=== PATIENT | male | born 1970 | race Caucasian/White ===

== ENCOUNTER 2018-11-25 11:59 | Inpatient (IN) | payer MEDICAID ==
[~2018-11-25] VITALS: Ht 182.9 cm; Wt 95.2 kg
[2018-11-25] MEDS ORDERED: hydrOXYzine 25 MG tablet PO PRN (15:05)
[2018-11-25] MEDS ORDERED: acetaminophen 325mg tablet PO PRN (15:05)
[2018-11-25] MEDS ORDERED: magnesium hydroxide 30ml (MOM) UD suspension PO PRN (15:05)
[2018-11-25] MEDS ORDERED: mag hydrox/Alum hydrox/simeth 30ml oral suspension PO PRN (15:05)
[2018-11-25] MEDS ORDERED: loperamide 2mg capsule PO PRN (15:05)
[2018-11-25] MEDS ORDERED: LORazepam 1 MG tablet PO PRN (15:05)
[2018-11-25] MEDS ORDERED: OLAN5TAB26 PO (15:50)
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
[2018-11-25 16:50] VITALS: BP 136/74
[2018-11-25] MEDS: acetaminophen 325mg tablet PO PRN (17:11)
[2018-11-25] MEDS: OLANZAPINE 5 MG TABLET PO SCH (19:56)
[2018-11-25 20:00] VITALS: BP 105/67
--- NOTE | 2018-11-26 01:06 | NUR ---
Nursing Progress Note: Legal hold:5150 Client on voluntary/involuntary status for GD/DTS/DTO for being a danger to self and GD Report received from nurse, Kel Jennings RN with use of SBAR Why are they here: The patient was admitted to [facility] from [facility] ER on a 5150 for being a danger to himself and gravely disabled. He presented with paranoid delusions that he is being monitored by the FBI and was under surveillance. He believes that he has an infestation of parasites and he was taking large doses of veterinary medications. Per the [facility] assessment his girlfriend reported that his parents approximately 3 years ago and he had not been himself after that. He has been traveling from [facility] to [place] seeking medical help for his delusional beliefs. Assessment What has happened this shift: The patient was observed in bed and snoring loudly and he presented as very drowsy but able to wake up for a brief period for the evening assessment. The patient was guarded in the information he shared. He was very vague and stated repeatedly that he was too tired to talk tonight. He did state that he was not hearing voices or seeing anything that was not there. He was asked if he was being followed by the FBI and he just avoided the question. He stated "I'm riddled with cysts" "I'm malnourished" "I have hydatid. Look it up and that will explain everything" When asked if he thought he might have a mental illness he stated that he had no idea. S/I, H/I: Denies A/VH: Denies but is guarded Sleep: the patient has been sleeping this entire shift ADL's: The patient stated he has not showered in several days at least Group attendance: NA Were meds taken: Took HS Zyprexa Any med S/E none apparent Mental Status Exam Appearance: disheveled Eye contact kept his eyes closed Behavior: resistive to the assessment at this time 2nd to fatigue Speech: spontaneous Mood: difficult to assess 2nd to drowsiness Affect: blunted Thought process: poor focus Thought Content: Delusional beliefs that he is physically unwell Cognition: unable to fully assess Insight: Poor Judgment: Poor Interventions PRN's used: none Therapeutic interventions: One to one with the patient to assess severity of disordered thoughts and self harm risk. Educated to medications. Restraints/seclusion/emergency medication: None Justification of Continued Inpatient Treatment: The patient has been taking medicines intended for animals 2nd to his delusional beliefs that he is ill.
[2018-11-26 07:03] LABS: CHOL/HDL RATIO 5.9 (0.00-4.99); CHOLESTEROL 184 MG/DL (0-200); HDL CHOLESTEROL 31 MG/DL (35-60); LDL CHOLESTEROL 138 MG/DL (50-100); TRIGLYCERIDES 125 MG/DL (20-135)
[2018-11-26 07:07] LABS: HEMOGLOBIN A1C 5.8 % (4.5-6.2)
[2018-11-26 08:00] VITALS: BP 117/75
[2018-11-26] MEDS: OLANZAPINE 5 MG TABLET PO SCH ×2 (08:25→20:22)
[2018-11-26] MEDS: acetaminophen 325mg tablet PO PRN (08:30)
--- NOTE | 2018-11-26 09:21 | NUR ---
Malnutrition consult, patient reports recent weight loss between 2-13 lbs and poor appetite. Patient currently has great appetite, eating 75-100% of meals and meeting nutrition needs. No edema. No Muscle weakness. Appears well nourished. Will continue to follow. Addendum: 11/26/18 at [address] Amended: Links added.
--- NOTE | 2018-11-26 15:50 | NUR ---
Nursing Progress Note: JULIO CESAR Legal hold:5150 Client on voluntary/involuntary status for GD/DTS/DTO for being a danger to self and GD Report received from nurse, Apryl NEGRON with use of SBAR Why are they here: The patient was admitted to [facility] from [facility] ER on a 5150 for being a danger to himself and gravely disabled. He presented with paranoid delusions that he is being monitored by the FBI and was under surveillance. He believes that he has an infestation of parasites and he was taking large doses of veterinary medications. Per the [facility] assessment his girlfriend reported that his parents approximately 3 years ago and he had not been himself after that. He has been traveling from [facility] to [place] seeking medical help for his delusional beliefs. Assessment What has happened this shift: Pt appears sleeping in bed at change of shift. Once awake he is disheveled and has poor hygiene. Pt denies depression, anxiety, SI/HI/AH/VH although appears paranoid AEB cautiously watching surroundings and giving minimal soft spoken answers. Pt states that he is "Fine" and reports poor sleep. Pt reports he plans on napping after breakfast. He c/o pain that he attributes to the hospital bed. Denies any SEs to medications, none objectively observed. Pt is very guarded and does not conversate freely. S/I, H/I: Denies A/VH: Denies but is guarded Sleep: 10.75 hrs NOC ADL's: Pt encouraged to shower, Group attendance: NA Were meds taken: Yes Any med S/E: Denies, none observed Mental Status Exam Appearance: disheveled Eye contact; Direct Behavior: cooperative Speech: spontaneous, minimal answers, soft tone Mood: Fine Affect: blunted Thought process: poor focus Thought Content: Delusional beliefs that he is physically unwell Cognition: unable to fully assess, pt unwilling to engage in assessment Insight: Poor Judgment: Poor Interventions PRN's used: none Therapeutic interventions: One to one with the patient to assess severity of disordered thoughts and self harm risk. Educated to medications. Restraints/seclusion/emergency medication: None Justification of Continued Inpatient Treatment: The patient has been taking medicines intended for animals 2nd to his delusional beliefs that he is ill. Pt. requires interruption of current crisis, medication adjustments, pain management, and a safe and supportive environment.
[2018-11-26 20:00] VITALS: BP 119/76
[2018-11-26] MEDS: traMADol 50MG tablet PO PRN (20:54)
--- NOTE | 2018-11-27 02:58 | NUR ---
NURSING PROGRESS NOTE: Legal hold: 515 Exp 11/28 @ 1530 Client on involuntary status for GD and DTS Report received from JAMIL Davenport with use of SBAR Why are they here: The patient was admitted to [facility] from [facility] ER on a 5150 for being a danger to himself and gravely disabled. He presented with paranoid delusions that he is being monitored by the FBI and was under surveillance. He believes that he has an infestation of parasites and he was taking large doses of veterinary medications. Per the [facility] assessment his girlfriend reported that his parents approximately 3 years ago and he had not been himself after that. He has been traveling from [facility] to [place] seeking medical help for his delusional beliefs. Assessment What has happened this shift: Pt is observed sleeping in bed at shift change, no acute distress noted. Pt is arouses easily, but does not make conversation. 1:1 assessment is completed at bedside, pt stays on his back and mumbles "it will be okay." Pt doesn't answer questions regarding A/VH, but emphatically states "oh no I don't want to hurt myself." During the entire assessment pt keeps his eye shut and is in and out of conversation. Pt c/o of low back pain 7/10 - Ultram is administered. Pt is observed mumbling to self. Pt is medication compliant. Pt sleeping comfortably will continue to monitor. S/I, H/I: Pt emphatically denies S/I. A/VH: Pt denies, but observed mumbling to self Sleep: See sleep assessment notation. ADL's: Independent, pt needs to shower. Group attendance: hourly shift, no group. Were meds taken: Medication compliant. Any med S/E: None reported or observed. Mental Status Exam Appearance: Sleepy, disheveled, wearing green unit scrubs Eye contact: Eyes closed throughout assessment. Assessed pupil size #3 Behavior: Groggy, cooperative Speech: Spontaneous, mumbled, minimal answers, soft tone Mood: "Yeah, I'm fine." Affect: Blunted Thought process: Poverty of speech Thought Content: Delusional beliefs that he is physically unwell Cognition: Unable to fully assess, pt unwilling to engage in assessment Insight: Poor Judgment: Poor Interventions PRN's used: None Therapeutic interventions: 1:1 therapeutic assessment, medication administration/education/monitoring, reorient to reality as needed, Q15 min safety checks Restraints/seclusion/emergency medication: None Justification of Continued Inpatient Treatment: The patient has been taking medicines intended for animals 2nd to his delusional beliefs that he is ill. Pt. requires interruption of current crisis, medication adjustments, pain management, and a safe and supportive environment.
[2018-11-27 07:00] VITALS: BP 108/73
[2018-11-27] MEDS: OLANZAPINE 5 MG TABLET PO SCH ×2 (08:12→20:32)
[2018-11-27] MEDS: traMADol 50MG tablet PO PRN (08:17)
--- NOTE | 2018-11-27 15:58 | NUR ---
Nursing Progress Note: JULIO CESAR Legal hold:5150 Client on voluntary/involuntary status for GD/DTS/DTO for being a danger to self and GD Report received from nurse, Apryl NEGRON with use of SBAR Why are they here: The patient was admitted to [facility] from [facility] ER on a 5150 for being a danger to himself and gravely disabled. He presented with paranoid delusions that he is being monitored by the FBI and was under surveillance. He believes that he has an infestation of parasites and he was taking large doses of veterinary medications. Per the [facility] assessment his girlfriend reported that his parents approximately 3 years ago and he had not been himself after that. He has been traveling from [facility] to [place] seeking medical help for his delusional beliefs. Assessment What has happened this shift: Pt appears sleeping in bed at change of shift. Once awake he is disheveled and has poor hygiene. Pt is unwilling to shower despite much persuasion. Pt denies depression, anxiety, SI/HI/AH/VH. He reports not feeling well and requests to sleep. Pt is very groggy and unwilling to engage in any meaningful conversation. Pt states that he is "OK". Pt denies wanting to go to group and is reluctant to get up for meals. He c/o pain in the buttocks that he attributes to the hospital bed. Tramadol PRN was given X1. Denies any SEs to medications, none objectively observed. S/I, H/I: Denies A/VH: Denies but is guarded Sleep: 9 hrs NOC ADL's: Pt encouraged to shower, firmly denies Group attendance: No Were meds taken: Yes Any med S/E: Denies, none observed Mental Status Exam Appearance: disheveled, greasy uncombed hair Eye contact: Direct Behavior: guarded, tired Speech: spontaneous, minimal answers, soft tone Mood: "I just dont feel well." Affect: tired Thought process: poor focus Thought Content: Delusional beliefs that he is physically unwell Cognition: unable to fully assess, pt unwilling to engage in assessment Insight: Poor Judgment: Poor Interventions PRN's used: Tramadol X1 Therapeutic interventions: One to one with the patient to assess severity of disordered thoughts and self harm risk. Educated to medications. Restraints/seclusion/emergency medication: None Justification of Continued Inpatient Treatment: The patient has been taking medicines intended for animals 2nd to his delusional beliefs that he is ill. Pt. requires interruption of current crisis, medication adjustments, pain management, and a safe and supportive environment.
[2018-11-27 19:57] VITALS: BP 112/78
--- NOTE | 2018-11-28 01:21 | NUR ---
NURSING PROGRESS NOTE: Legal hold: 5149 Exp 11/28 @ 1530 Client on involuntary status for GD and DTS Report received from JAMIL Davenport with use of SBAR Why are they here: The patient was admitted to [facility] from [facility] ER on a 5150 for being a danger to himself and gravely disabled. He presented with paranoid delusions that he is being monitored by the FBI and was under surveillance. He believes that he has an infestation of parasites and he was taking large doses of veterinary medications. Per the [facility] assessment his girlfriend reported that his parents approximately 3 years ago and he had not been himself after that. He has been traveling from [facility] to [place] seeking medical help for his delusional beliefs. Assessment What has happened this shift: Pt is observed sleeping in bed at shift change. Received in report that pt spent most of his time in bed also. Pt is having to be encouraged to go to meals and pt is refusing to shower. Pt remains cooperative. When wasn't able to say where he was or he was here, but he did remember what day it was. 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 Pt when prompted would sit up in bed and hold a short conversation, but remains fatigued and unable to keep his eyes open. Pt isn't able to say why he is so tired. Pt denies all mental health symptoms and keeps repeating, "well I am getting better, " the doctors are great here." S/I, H/I: Pt denies. A/VH: Pt denies, but observed mumbling to self Sleep: See sleep assessment notation. ADL's: Independent, pt needs to shower. Group attendance: table games shift manager, no group. Were meds taken: Medication compliant. Any med S/E: None reported or observed. Mental Status Exam Appearance: Sleepy, disheveled, wearing green unit scrubs Eye contact: Eyes closed throughout assessment. Assessed pupil size #3 Behavior: Groggy, cooperative, tired Speech: Spontaneous, mumbled, minimal answers, soft tone Mood: "Yeah, I'm fine." Affect: Blunted Thought process: A little disorganized Thought Content: Delusional beliefs that he is physically unwell Cognition: Unable to fully assess, pt unwilling to engage in assessment Insight: Poor Judgment: Poor Interventions PRN's used: None Therapeutic interventions: 1:1 therapeutic assessment, medication administration/education/monitoring, reorient to reality as needed, Q15 min safety checks Restraints/seclusion/emergency medication: None Justification of Continued Inpatient Treatment: The patient has been taking medicines intended for animals 2nd to his delusional beliefs that he is ill. Pt. requires interruption of current crisis, medication adjustments, pain management, and a safe and supportive environment.
[2018-11-28 08:00] VITALS: BP 117/82
[2018-11-28] MEDS: OLANZAPINE 5 MG TABLET PO SCH ×2 (08:25→20:15)
[2018-11-28] MEDS: traMADol 50MG tablet PO PRN ×2 (08:43→20:26)
--- NOTE | 2018-11-28 18:12 | NUR ---
Nursing Progress Note: Legal hold: voluntary for GD/DTS/DTO for being a danger to self and GD Report received from nurse, Elisa NEGRON with use of SBAR Why are they here: The patient was admitted to [facility] from [facility] ER on a 5150 for being a danger to himself and gravely disabled. He presented with paranoid delusions that he is being monitored by the FBI and was under surveillance. He believes that he has an infestation of parasites and he was taking large doses of veterinary medications. Per the [facility] assessment his girlfriend reported that his parents approximately 3 years ago and he had not been himself after that. He has been traveling from [facility] to [place] seeking medical help for his delusional beliefs. Assessment What has happened this shift: Patient is woken for breakfast. After eating he returns to his room. He appears groggy and reports being tired. He takes his medications without issue and requests pain med. When asked what is hurting, patient states My a*s. When asked to repeat what he said he states my hips hurt. Patient goes back to sleep. Patient wakes before lunch and sits up with a big smile on his face. He is very talkative but seems to have difficulty finishing what he wants to say, he pauses often. He shakes this RNs hand and says I feel like Im getting better Everybody here is kicking A*s, doing a great job! Patient tells this RN that he started feeling off about 3 days ago. Patient states that he has hernia surgery scheduled in [facility] on December 04. RN explains to patient what day it is, patient reports how he got here but recount is vague. Patient states that he is ready to get up and interact with others, go to groups and maybe shower. RN encouraged patient to shower and patient stated he would later. Patient returns to his room after lunch and is observed sleeping. He does not get up to attend groups or shower. S/I, H/I: Denies A/VH: Denies Sleep: 9 hrs NOC ADL's: Pt encouraged to shower, states he will later tonight Group attendance: No Were meds taken: Yes Any med S/E: Denies, none observed Mental Status Exam Appearance: disheveled, greasy uncombed hair Eye contact: Direct Behavior: tired Speech: spontaneous Mood: I feel like Im getting better Affect: tired Thought process: confused Thought Content: thought blocking Cognition: confused Insight: Poor Judgment: Poor Interventions PRN's used: Tramadol X1 Therapeutic interventions: One to one with the patient to assess severity of disordered thoughts and self harm risk. Educated to medications. Restraints/seclusion/emergency medication: None Justification of Continued Inpatient Treatment: The patient has been taking medicines intended for animals, patient has been sleeping mostly since admit and appears confused with disorganized thoughts when awake. Continued therapeutic support and medication adjustment/management needed to provide stabilization, prevent decompensation, improve coping mechanisms decreasing risk to patient and re-admittance.
[2018-11-28 19:00] VITALS: BP 118/79
--- NOTE | 2018-11-29 01:14 | NUR ---
NURSING PROGRESS NOTE: Legal hold: Voluntary Client on voluntary status for GD and DTS Report received from JAMIL Davenport with use of SBAR Why are they here: The patient was admitted to [facility] from [facility] ER on a 5150 for being a danger to himself and gravely disabled. He presented with paranoid delusions that he is being monitored by the FBI and was under surveillance. He believes that he has an infestation of parasites and he was taking large doses of veterinary medications. Per the [facility] assessment his girlfriend reported that his parents approximately 3 years ago and he had not been himself after that. He has been traveling from [facility] to [place] seeking medical help for his delusional beliefs. Assessment What has happened this shift: Pt was standing in his doorway at shift change. When this rewriter engaged with him he smiled and stated "Wow, I feel better." Pt is alert and interacting with both staff and peers. This is a turn around from last night. Pt is aware of where he is, but on how he arrived the information is vague. Pt is unsure where his car is "I think it is 20 miles south of [place] at a gas station." Pt agrees to take a shower. Pt keeps repeating "I am feeling better." After shower, pt had a brief episode of feeling SOB - VS: BP 130/82, HR 80, RR 20, SpO2 96%. Pt c/o of low back/hip pain, pt also appeared to be a little anxious AEB repeating himself. Administered scheduled Zyprexa and PRN Ultram with effect. Pt is sleeping comfortably as of this writing. Will continue to monitor. Pt is to be discharged tomorrow. S/I, H/I: Pt denies. A/VH: Pt denies. None observed Sleep: See sleep assessment notation. ADL's: Independent, pt showered this shift Group attendance: night shift, no group. Were meds taken: Medication compliant. Any med S/E: None reported or observed. Mental Status Exam Appearance: Disheveled, greasy hair, dressed in green scrubs Eye contact: Good Behavior: Cooperative, calm, receptive Speech: Spontaneous, normal rate and rhythm Mood: "Yeah, I'm fine." Affect: Bright, animated Thought process: Linear Thought Content: "I am feeling so much better" Cognition: A&Ox3 Insight: Poor Judgment: Poor Interventions PRN's used: Ultram Therapeutic interventions: 1:1 therapeutic assessment, medication administration/education/monitoring, reorient to reality as needed, Q15 min safety checks Restraints/seclusion/emergency medication: None Justification of Continued Inpatient Treatment: The patient has been taking medicines intended for animals 2nd to his delusional beliefs that he is ill. Pt. requires interruption of current crisis, medication adjustments, pain management, and a safe and supportive environment.
[2018-11-29] MEDS: OLANZAPINE 5 MG TABLET PO SCH (07:35)
[2018-11-29 08:00] VITALS: BP 114/75
[2018-11-29] MEDS ORDERED: OLAN5TAB26 PO (09:36)
--- NOTE | 2018-11-29 15:15 | NUR ---
DISCHARGE NOTE The patient was discharged today at 1515. He was picked up by his brother in law Steven. He left with all belongings, instructions and prescriptions. He stated understanding of all instructions. He will follow up with his PCP when he gets home which is in [place]. He was in good spirits with no s/s of psychosis. They were escorted to the lobby by LIMA Mays.
== END 2018-11-29 15:15 | disposition home or self-care (01) | DRG 760 ==
LOC: ADULT MH 11:59
PROVIDERS: ADMIT Psychiatry & Neurology Psychiatry; ATTEND Psychiatry & Neurology Psychiatry
DX: F22 Delusional disorders (principal); F32.9 Major depressive disorder, single episode, unspecified; F41.9 Anxiety disorder, unspecified; F42.9 Obsessive-compulsive disorder, unspecified; G89.29 Other chronic pain; M54.9 Dorsalgia, unspecified; Z84.89 Family history of other specified conditions; I25.2 Old myocardial infarction; Z82.0 Family history of epilepsy and other diseases of the nervous system; Z86.73 Personal history of transient ischemic attack (TIA), and cerebral infarction without residual deficits
CPT/HCPCS: 36415; 80061; 83036; 87081; 99285